=== PATIENT | male | born 1970 | race Caucasian/White ===

== ENCOUNTER → 2016-08-02 | Outpatient (REF) | LOC: M LAB 09:41 | PROVIDERS: ATTEND Nurse Practitioner Adult Health | DX: Z02.9 Encounter for administrative examinations, unspecified (principal) ==

== ENCOUNTER → 2016-10-18 | Outpatient (CLI) | payer OTHER ==
[2016-10-18 14:13] LABS: ALBUMIN 4.4 GM/DL (3.2-5.2); ALBUMIN/GLOBULIN RATIO 1.52 (1.00-1.93); ALKALINE PHOSPHATASE 57 U/L (45-117); ALT/SGPT 27 U/L (12-78); ANION GAP 7 MEQ/L (8-16); AST/SGOT 16 U/L (15-37); BILIRUBIN,TOTAL 0.3 MG/DL (0.2-1.0); BLOOD UREA NITROGEN 15 MG/DL (7-18); CALCIUM LEVEL 9.1 MG/DL (8.5-10.1); CARBON DIOXIDE LEVEL 27 MEQ/L (21-32); CHLORIDE LEVEL 106 MEQ/L (98-107); CHOLESTEROL LEVEL 218 MG/DL (<200); CREATININE FOR GFR 0.87 MG/DL (0.70-1.30); GLOMERULAR FILTRATION RATE > 60.0 (>60); GLUCOSE, FASTING 145 MG/DL (70-105); POTASSIUM SERUM 4.8 MEQ/L (3.5-5.1); SODIUM LEVEL 140 MEQ/L (136-145); TOTAL PROTEIN 7.3 GM/DL (6.4-8.2); TRIGLYCERIDES LEVEL 119 MG/DL (<150)
== END ==
LOC: M WUC 09:11
PROVIDERS: ATTEND Family Medicine Addiction Medicine
DX: I10 Essential (primary) hypertension (principal)

== ENCOUNTER → 2021-04-01 | Outpatient (REF) | LOC: M LABSMTC 10:27 | PROVIDERS: ATTEND Pediatrics | DX: Z20.822 Contact with and (suspected) exposure to COVID-19 (principal) ==

== ENCOUNTER → 2021-08-19 | Outpatient (CLI) | payer SELFPAY ==
[2021-08-19 17:54] LABS: BLOOD UREA NITROGEN 11 MG/DL (7-18); CALCIUM LEVEL 9.7 MG/DL (8.5-10.1); CARBON DIOXIDE LEVEL 31 MEQ/L (21-32); CHLORIDE LEVEL 106 MEQ/L (98-107); CREATININE FOR GFR 0.86 MG/DL (0.70-1.30); GLOMERULAR FILTRATION RATE > 60.0 (>60); GLUCOSE, FASTING 90 MG/DL (70-100); POTASSIUM SERUM 5.3 MEQ/L (3.5-5.1); SODIUM LEVEL 139 MEQ/L (136-145)
== END ==
LOC: M PLALAB 15:24
PROVIDERS: ATTEND Physician Assistant
DX: I10 Essential (primary) hypertension (principal)

== ENCOUNTER 2022-10-06 09:54 | Emergency (ER) | payer BC, SELFPAY ==
[~2022-10-06] VITALS: Ht 170.2 cm; Wt 90.7 kg
[2022-10-06] MEDS ORDERED: CETIRIZINE (ZyrTEC) 10 MG TAB PO ONE (12:40)
[2022-10-06] MEDS ORDERED: methylPREDNISolone 125MG 2ML VIAL IV ONE (12:40)
[2022-10-06 13:13] LABS: BASO # 0.1 10^3/uL (0.0-0.2); BASO % 0.4 % (0.0-1.0); EOS # 0.5 10^3/uL (0.0-0.5); EOS % 3.7 % (0.0-3.0); HEMATOCRIT 44.3 % (42.0-52.0); HEMOGLOBIN 14.7 g/dl (13.5-17.5); LYMPH # 2.2 10^3/uL (1.5-5.0); LYMPH % 15.3 % (24.0-44.0); MEAN CORPUSCULAR HEMOGLOBIN 31.3 pg (27.0-33.0); MEAN CORPUSCULAR HGB CONC 33.2 g/dl (32.0-36.5); MEAN CORPUSCULAR VOLUME 94.5 fl (80.0-96.0); MONO # 0.9 10^3/uL (0.0-0.8); MONO % 6.4 % (2.0-8.0); NEUTROPHILS # 10.3 10^3/uL (1.5-8.5); NEUTROPHILS % 73.9 % (36.0-66.0); PLATELET COUNT, AUTOMATED 265 10^3/uL (150-450); RED BLOOD COUNT 4.69 10^6/uL (4.30-6.10)
[2022-10-06 13:41] LABS: BLOOD UREA NITROGEN 9 MG/DL (9-23); CALCIUM LEVEL 9.3 MG/DL (8.5-10.1); CARBON DIOXIDE LEVEL 27 MMOL/L (20-31); CHLORIDE LEVEL 104 MMOL/L (98-107); GLOMERULAR FILTRATION RATE > 60.0 (>56); GLUCOSE, FASTING 116 MG/DL (60-100); POTASSIUM SERUM 4.9 MMOL/L (3.5-5.1); SODIUM LEVEL 137 MMOL/L (136-145)
[2022-10-06 14:11] LABS: ERYTHROCYTE SEDIMENTATION RATE 21 mm/hr (0-20)
[2022-10-06] MEDS ORDERED: ALL10TAB2 PO (14:39)
[2022-10-06] MEDS ORDERED: PRED20TA PO (14:39)
[2022-10-06] MEDS ORDERED: HYDR-3363 PO (14:39)
[2022-10-06 14:56] VITALS: BP 145/88
== END 2022-10-06 15:02 | disposition home or self-care (01) ==
LOC: M ED 09:54
DX: L20.9 Atopic dermatitis, unspecified (principal); I10 Essential (primary) hypertension; F17.200 Nicotine dependence, unspecified, uncomplicated; Z79.52 Long term (current) use of systemic steroids; Z79.811 Long term (current) use of aromatase inhibitors; Z79.899 Other long term (current) drug therapy
CPT/HCPCS: 80048; 85025; 85652; 86140; 93971; 96374; 99284; J2930

== ENCOUNTER 2022-11-03 18:56 | Inpatient (IN) | payer BC ==
[~2022-11-03] VITALS: Ht 170.2 cm; Wt 97.9 kg
[~2022-11-03 18:56] MED LIST: ALL10TAB2 PO; HYDR-3363 PO; PRED20TA PO
[2022-11-03 20:20] LABS: BASO % 0.2 % (0.0-1.0); EOS # 0.2 10^3/uL (0.0-0.5); EOS % 0.9 % (0.0-3.0); HEMATOCRIT 35.8 % (42.0-52.0); HEMOGLOBIN 11.7 g/dl (13.5-17.5); LYMPH # 1.2 10^3/uL (1.5-5.0); LYMPH % 7.1 % (24.0-44.0); MEAN CORPUSCULAR HEMOGLOBIN 30.7 pg (27.0-33.0); MEAN CORPUSCULAR HGB CONC 32.7 g/dl (32.0-36.5); MONO # 0.9 10^3/uL (0.0-0.8); MONO % 5.5 % (2.0-8.0); NEUTROPHILS # 14.7 10^3/uL (1.5-8.5); NEUTROPHILS % 85.7 % (36.0-66.0); PLATELET COUNT, AUTOMATED 293 10^3/uL (150-450); RED BLOOD COUNT 3.81 10^6/uL (4.30-6.10); WHITE BLOOD COUNT 17.2 10^3/uL (4.0-10.0)
[2022-11-03 20:41] LABS: ERYTHROCYTE SEDIMENTATION RATE 70 mm/hr (0-20)
[2022-11-03] MEDS ORDERED: CLINDAMYCIN 900 MG in IV 1 EA IV ONE (21:10)
[2022-11-03 22:00] LABS: RSV AMPLIFICATION NEGATIVE (NEGATIVE)
[2022-11-03] MEDS ORDERED: MOM 30ML SUSPENSION UDC PO PRN (23:45)
[2022-11-03] MEDS ORDERED: FLUID PLACE HOLDER IV SCH (23:45)
[2022-11-03] MEDS ORDERED: ACETAMINOPHEN TAB 650MG DOSE (2X325MG) PO PRN (23:45)
[2022-11-03] MEDS ORDERED: VANCOMYCIN HCL IV SCH (23:45)
[2022-11-03] MEDS ORDERED: MAALOX 30 ML SUSP *UDC PO PRN (23:45)
[2022-11-04] VITALS (7 sets, daily range): BP systolic 110–168; BP diastolic 57–90
[2022-11-04] MEDS ORDERED: ACET-897 PO (00:01)
[2022-11-04] MEDS ORDERED: HOME MED LIST COMPLETE! XX SCH (00:05)
[2022-11-04] MEDS: VANCOMYCIN HCL 1,000 MG, VIAL MATE ADAPTER 1 EACH in NS 250 ML IV SCH ×2 (01:17→09:30)
[2022-11-04] MEDS: PERCOCET 5MG/325MG TAB PO PRN ×4 (01:46→11:16)
[2022-11-04] MEDS ORDERED: VANCOMYCIN HCL 1,000 MG, VIAL MATE ADAPTER 1 EACH in NS 250 ML IV ONE (02:00)
[2022-11-04] MEDS: HEPARIN SOD (PORCINE) 5000UNITS/ML 1ML VIAL/SYRINGE SC SCH ×3 (05:05→21:50)
[2022-11-04 05:28] LABS: BASO % 0.2 % (0.0-1.0); EOS # 0.4 10^3/uL (0.0-0.5); EOS % 2.7 % (0.0-3.0); HEMATOCRIT 33.1 % (42.0-52.0); HEMOGLOBIN 10.8 g/dl (13.5-17.5); LYMPH # 1.4 10^3/uL (1.5-5.0); LYMPH % 8.5 % (24.0-44.0); MEAN CORPUSCULAR HEMOGLOBIN 30.9 pg (27.0-33.0); MEAN CORPUSCULAR HGB CONC 32.6 g/dl (32.0-36.5); MEAN CORPUSCULAR VOLUME 94.6 fl (80.0-96.0); MONO # 0.9 10^3/uL (0.0-0.8); MONO % 5.4 % (2.0-8.0); NEUTROPHILS # 13.3 10^3/uL (1.5-8.5); NEUTROPHILS % 82.6 % (36.0-66.0); PLATELET COUNT, AUTOMATED 266 10^3/uL (150-450); WHITE BLOOD COUNT 16.2 10^3/uL (4.0-10.0)
[2022-11-04 05:44] LABS: BLOOD UREA NITROGEN 12 MG/DL (9-23); CALCIUM LEVEL 7.3 MG/DL (8.5-10.1); CARBON DIOXIDE LEVEL 28 MMOL/L (20-31); CHLORIDE LEVEL 103 MMOL/L (98-107); CREATININE FOR GFR 0.86 MG/DL (0.70-1.30); GLOMERULAR FILTRATION RATE > 60.0 (>56); GLUCOSE, FASTING 116 MG/DL (60-100); POTASSIUM SERUM 4.2 MMOL/L (3.5-5.1); SODIUM LEVEL 137 MMOL/L (136-145)
[2022-11-04 08:14] LABS: ANTI-STREPTOLYSIN O QUANT < 25.0 IU/ML (<195)
[2022-11-04] MEDS ORDERED: LOSARTAN 25 MG TAB PO SCH (09:00)
[2022-11-04 10:06] LABS: CHOLESTEROL LEVEL 98 MG/DL (<200); CHOLESTEROL RISK RATIO 4.33 (<5); HDL CHOLESTEROL 22.6 MG/DL (>40); LDL CHOLESTEROL 53.6 MG/DL (<100); NON-HDL-C 75.4 MG/DL; TRIGLYCERIDES LEVEL 109 MG/DL (<150)
[2022-11-04 10:55] LABS: HEMOGLOBIN A1c 5.2 % (4.0-6.0)
[2022-11-04] MEDS: ROSUVASTATIN 10 MG TAB (CRESTOR) PO SCH (11:12)
[2022-11-04] MEDS: ASPIRIN 81MG ENTERIC TABLET PO SCH (11:12)
[2022-11-04 11:25] LABS: MAGNESIUM LEVEL 1.6 MG/DL (1.8-2.4)
[2022-11-04] MEDS: NS 1,000 ML IV SCH ×2 (11:38→22:56)
[2022-11-04] MEDS: VANCOMYCIN HCL 750 MG, VIAL MATE ADAPTER 1 EACH in D5W 250 ML IV SCH (17:54)
[2022-11-05] MEDS: VANCOMYCIN HCL 750 MG, VIAL MATE ADAPTER 1 EACH in D5W 250 ML IV SCH ×3 (01:11→18:14)
[2022-11-05] MEDS: PERCOCET 5MG/325MG TAB PO PRN ×3 (02:12→18:15)
[2022-11-05 03:54] VITALS: BP 113/62
[2022-11-05 04:24] LABS: BASO % 0.3 % (0.0-1.0); EOS # 0.4 10^3/uL (0.0-0.5); EOS % 3.9 % (0.0-3.0); HEMATOCRIT 28.3 % (42.0-52.0); HEMOGLOBIN 9.1 g/dl (13.5-17.5); LYMPH # 2.2 10^3/uL (1.5-5.0); LYMPH % 21.2 % (24.0-44.0); MEAN CORPUSCULAR HGB CONC 32.2 g/dl (32.0-36.5); MEAN CORPUSCULAR VOLUME 96.3 fl (80.0-96.0); MONO # 0.8 10^3/uL (0.0-0.8); MONO % 8.1 % (2.0-8.0); NEUTROPHILS # 6.7 10^3/uL (1.5-8.5); NEUTROPHILS % 65.9 % (36.0-66.0); PLATELET COUNT, AUTOMATED 258 10^3/uL (150-450); RED BLOOD COUNT 2.94 10^6/uL (4.30-6.10); WHITE BLOOD COUNT 10.2 10^3/uL (4.0-10.0)
[2022-11-05 04:53] LABS: C REACTIVE PROTEIN QUANTITATIV 17.6 MG/DL (<1.0)
[2022-11-05 04:56] LABS: CALCIUM LEVEL 7.4 MG/DL (8.5-10.1); CREATININE FOR GFR 1.41 MG/DL (0.70-1.30); GLOMERULAR FILTRATION RATE 56.4 (>56); POTASSIUM SERUM 4.2 MMOL/L (3.5-5.1)
[2022-11-05] MEDS: HEPARIN SOD (PORCINE) 5000UNITS/ML 1ML VIAL/SYRINGE SC SCH ×3 (05:10→22:09)
[2022-11-05 07:57] VITALS: BP 141/72
[2022-11-05] MEDS: ROSUVASTATIN 10 MG TAB (CRESTOR) PO SCH (08:30)
[2022-11-05] MEDS: ASPIRIN 81MG ENTERIC TABLET PO SCH (08:30)
[2022-11-05] MEDS: NS 1,000 ML IV SCH ×3 (08:33→23:54)
[2022-11-05 08:34] LABS: MAGNESIUM LEVEL 1.8 MG/DL (1.8-2.4)
[2022-11-05 11:54] VITALS: BP 142/79
[2022-11-05] MEDS: MORPHINE 2 MG/ML 1ML VIAL IV PRN ×2 (12:39→22:15)
[2022-11-05 16:51] VITALS: BP 144/75
[2022-11-05 20:00] VITALS: BP 127/62
[2022-11-06 00:15] VITALS: BP 130/69
[2022-11-06] MEDS: NS 1,000 ML IV SCH ×3 (02:19→20:11)
[2022-11-06] MEDS: VANCOMYCIN HCL 750 MG, VIAL MATE ADAPTER 1 EACH in D5W 250 ML IV SCH (02:19)
[2022-11-06 04:07] VITALS: BP 127/77
[2022-11-06 05:31] LABS: BASO % 0.3 % (0.0-1.0); EOS # 0.3 10^3/uL (0.0-0.5); EOS % 2.8 % (0.0-3.0); HEMATOCRIT 28.5 % (42.0-52.0); HEMOGLOBIN 9.1 g/dl (13.5-17.5); LYMPH # 2.3 10^3/uL (1.5-5.0); LYMPH % 25.9 % (24.0-44.0); MEAN CORPUSCULAR HEMOGLOBIN 30.6 pg (27.0-33.0); MEAN CORPUSCULAR HGB CONC 31.9 g/dl (32.0-36.5); MONO # 0.7 10^3/uL (0.0-0.8); MONO % 7.7 % (2.0-8.0); NEUTROPHILS # 5.5 10^3/uL (1.5-8.5); NEUTROPHILS % 62.5 % (36.0-66.0); PLATELET COUNT, AUTOMATED 275 10^3/uL (150-450); RED BLOOD COUNT 2.97 10^6/uL (4.30-6.10); WHITE BLOOD COUNT 8.8 10^3/uL (4.0-10.0)
[2022-11-06] MEDS: HEPARIN SOD (PORCINE) 5000UNITS/ML 1ML VIAL/SYRINGE SC SCH ×3 (05:32→21:45)
[2022-11-06 05:55] LABS: BLOOD UREA NITROGEN 17 MG/DL (9-23); CALCIUM LEVEL 7.5 MG/DL (8.5-10.1); CARBON DIOXIDE LEVEL 25 MMOL/L (20-31); CHLORIDE LEVEL 108 MMOL/L (98-107); CREATININE FOR GFR 0.95 MG/DL (0.70-1.30); GLOMERULAR FILTRATION RATE > 60.0 (>56); GLUCOSE, FASTING 100 MG/DL (60-100); MAGNESIUM LEVEL 1.9 MG/DL (1.8-2.4); POTASSIUM SERUM 4.7 MMOL/L (3.5-5.1); SODIUM LEVEL 137 MMOL/L (136-145)
[2022-11-06] MEDS: MORPHINE 2 MG/ML 1ML VIAL IV PRN ×3 (07:37→17:18)
[2022-11-06 08:00] VITALS: BP 147/78
[2022-11-06] MEDS: ROSUVASTATIN 10 MG TAB (CRESTOR) PO SCH (10:33)
[2022-11-06] MEDS: ASPIRIN 81MG ENTERIC TABLET PO SCH (10:33)
[2022-11-06] MEDS ORDERED: DOXYCYCLINE HYCLATE 100 MG in D5W MINI-BAG PLUS 100 ML IV SCH (10:40)
[2022-11-06 12:00] VITALS: BP 174/96
[2022-11-06] MEDS: DOXYCYCLINE HYCLATE 100MG TABLET PO SCH ×2 (12:33→21:44)
[2022-11-06] MEDS: NICOTINE 21MG/24HR 1 EA TRANSDERMAL TD PRN (14:39)
[2022-11-06] MEDS: PERCOCET 5MG/325MG TAB PO PRN ×2 (14:40→21:44)
[2022-11-06 16:00] VITALS: BP 158/78
[2022-11-06] MEDS ORDERED: MORPHINE 2 MG/ML 1ML VIAL IV ONE (19:35)
[2022-11-06 19:50] VITALS: BP 143/75
[2022-11-07] VITALS (9 sets, daily range): BP systolic 150–182; BP diastolic 74–99
[2022-11-07] MEDS ORDERED: amLODIPine 5 MG TAB PO ONE ×2 (02:00→13:25)
[2022-11-07] MEDS: PERCOCET 5MG/325MG TAB PO PRN ×3 (06:03→20:19)
[2022-11-07] MEDS: HEPARIN SOD (PORCINE) 5000UNITS/ML 1ML VIAL/SYRINGE SC SCH ×3 (06:03→22:03)
[2022-11-07 06:25] LABS: BASO % 0.3 % (0.0-1.0); EOS # 0.2 10^3/uL (0.0-0.5); EOS % 2.4 % (0.0-3.0); HEMATOCRIT 28.8 % (42.0-52.0); HEMOGLOBIN 9.2 g/dl (13.5-17.5); LYMPH # 2.5 10^3/uL (1.5-5.0); LYMPH % 26.1 % (24.0-44.0); MEAN CORPUSCULAR HEMOGLOBIN 30.6 pg (27.0-33.0); MEAN CORPUSCULAR HGB CONC 31.9 g/dl (32.0-36.5); MEAN CORPUSCULAR VOLUME 95.7 fl (80.0-96.0); MONO # 0.8 10^3/uL (0.0-0.8); MONO % 8.7 % (2.0-8.0); NEUTROPHILS # 5.9 10^3/uL (1.5-8.5); NEUTROPHILS % 61.7 % (36.0-66.0); PLATELET COUNT, AUTOMATED 292 10^3/uL (150-450); RED BLOOD COUNT 3.01 10^6/uL (4.30-6.10); WHITE BLOOD COUNT 9.5 10^3/uL (4.0-10.0)
[2022-11-07 06:47] LABS: BLOOD UREA NITROGEN 13 MG/DL (9-23); CARBON DIOXIDE LEVEL 25 MMOL/L (20-31); CHLORIDE LEVEL 107 MMOL/L (98-107); CREATININE FOR GFR 0.82 MG/DL (0.70-1.30); GLOMERULAR FILTRATION RATE > 60.0 (>56); GLUCOSE, FASTING 96 MG/DL (60-100); MAGNESIUM LEVEL 1.9 MG/DL (1.8-2.4); POTASSIUM SERUM 4.4 MMOL/L (3.5-5.1); SODIUM LEVEL 139 MMOL/L (136-145)
[2022-11-07] MEDS: ROSUVASTATIN 10 MG TAB (CRESTOR) PO SCH (08:14)
[2022-11-07] MEDS: DOXYCYCLINE HYCLATE 100MG TABLET PO SCH ×2 (08:15→20:18)
[2022-11-07] MEDS: NS 1,000 ML IV SCH ×2 (08:15→22:03)
[2022-11-07] MEDS: ASPIRIN 81MG ENTERIC TABLET PO SCH (08:15)
[2022-11-07] MEDS: MORPHINE 2 MG/ML 1ML VIAL IV PRN ×2 (08:32→16:23)
[2022-11-07] MEDS ORDERED: ISOVUE-370 76% 100ML VIAL As Ordered ONE (10:19)
[2022-11-07] MEDS: predniSONE 20 MG TAB PO SCH (13:45)
[2022-11-07] MEDS: NICOTINE 21MG/24HR 1 EA TRANSDERMAL TD PRN (16:23)
[2022-11-07] MEDS ORDERED: **hydrALAZINE HCL** 25 MG TAB PO PRN (17:00)
[2022-11-08 02:00] VITALS: BP 150/97
[2022-11-08] MEDS: HEPARIN SOD (PORCINE) 5000UNITS/ML 1ML VIAL/SYRINGE SC SCH ×3 (05:53→20:56)
[2022-11-08 06:00] VITALS: BP 153/89
[2022-11-08 06:23] LABS: BASO % 0.2 % (0.0-1.0); EOS % 0.1 % (0.0-3.0); HEMATOCRIT 30.3 % (42.0-52.0); HEMOGLOBIN 9.6 g/dl (13.5-17.5); LYMPH # 1.8 10^3/uL (1.5-5.0); LYMPH % 17.4 % (24.0-44.0); MEAN CORPUSCULAR HEMOGLOBIN 30.4 pg (27.0-33.0); MEAN CORPUSCULAR HGB CONC 31.7 g/dl (32.0-36.5); MEAN CORPUSCULAR VOLUME 95.9 fl (80.0-96.0); MONO # 0.8 10^3/uL (0.0-0.8); MONO % 7.6 % (2.0-8.0); NEUTROPHILS # 7.7 10^3/uL (1.5-8.5); NEUTROPHILS % 73.9 % (36.0-66.0); PLATELET COUNT, AUTOMATED 316 10^3/uL (150-450); RED BLOOD COUNT 3.16 10^6/uL (4.30-6.10); WHITE BLOOD COUNT 10.4 10^3/uL (4.0-10.0)
[2022-11-08 06:42] LABS: BLOOD UREA NITROGEN 14 MG/DL (9-23); CALCIUM LEVEL 8.4 MG/DL (8.5-10.1); CARBON DIOXIDE LEVEL 25 MMOL/L (20-31); CHLORIDE LEVEL 109 MMOL/L (98-107); GLOMERULAR FILTRATION RATE > 60.0 (>56); GLUCOSE, FASTING 124 MG/DL (60-100); MAGNESIUM LEVEL 1.9 MG/DL (1.8-2.4); POTASSIUM SERUM 4.6 MMOL/L (3.5-5.1); SODIUM LEVEL 139 MMOL/L (136-145)
[2022-11-08] MEDS ORDERED: amLODIPine 5 MG TAB PO SCH (09:00)
[2022-11-08] MEDS: ROSUVASTATIN 10 MG TAB (CRESTOR) PO SCH (09:42)
[2022-11-08] MEDS: ASPIRIN 81MG ENTERIC TABLET PO SCH (09:42)
[2022-11-08] MEDS: predniSONE 20 MG TAB PO SCH (09:42)
[2022-11-08] MEDS: DOXYCYCLINE HYCLATE 100MG TABLET PO SCH ×2 (09:42→20:55)
[2022-11-08 10:00] VITALS: BP 155/84
[2022-11-08] MEDS: PERCOCET 5MG/325MG TAB PO PRN ×3 (10:02→23:50)
[2022-11-08] MEDS: SPIRONOLACTONE 25 MG TAB PO SCH (11:27)
[2022-11-08] MEDS: SENOKOT S TAB PO SCH (11:27)
[2022-11-08] MEDS: NS 1,000 ML IV SCH ×2 (11:28→23:50)
[2022-11-08 14:00] VITALS: BP 171/96
[2022-11-08] MEDS: MORPHINE 2 MG/ML 1ML VIAL IV PRN ×2 (15:02→20:56)
[2022-11-08] MEDS: NICOTINE 21MG/24HR 1 EA TRANSDERMAL TD PRN (17:27)
[2022-11-08 18:00] VITALS: BP 162/93
[2022-11-08 20:28] VITALS: BP 162/93
[2022-11-08] MEDS ORDERED: **hydrALAZINE HCL** 25 MG TAB PO SCH (21:00)
[2022-11-09] MEDS: HEPARIN SOD (PORCINE) 5000UNITS/ML 1ML VIAL/SYRINGE SC SCH ×3 (06:01→20:32)
[2022-11-09 06:35] VITALS: BP 178/100
[2022-11-09 07:19] LABS: BASO % 0.4 % (0.0-1.0); EOS % 0.4 % (0.0-3.0); HEMATOCRIT 30.1 % (42.0-52.0); HEMOGLOBIN 9.3 g/dl (13.5-17.5); LYMPH # 2.9 10^3/uL (1.5-5.0); LYMPH % 25.7 % (24.0-44.0); MEAN CORPUSCULAR HEMOGLOBIN 30.7 pg (27.0-33.0); MEAN CORPUSCULAR HGB CONC 30.9 g/dl (32.0-36.5); MEAN CORPUSCULAR VOLUME 99.3 fl (80.0-96.0); MONO # 0.9 10^3/uL (0.0-0.8); MONO % 7.8 % (2.0-8.0); NEUTROPHILS # 7.2 10^3/uL (1.5-8.5); NEUTROPHILS % 64.8 % (36.0-66.0); PLATELET COUNT, AUTOMATED 307 10^3/uL (150-450); RED BLOOD COUNT 3.03 10^6/uL (4.30-6.10); WHITE BLOOD COUNT 11.1 10^3/uL (4.0-10.0)
[2022-11-09 08:08] VITALS: BP 186/100
[2022-11-09 08:46] LABS: ALKALINE PHOSPHATASE 139 U/L (46-116); ALT/SGPT 51 U/L (7.0-40); AST/SGOT 48 U/L (<34); BILIRUBIN,TOTAL 0.2 MG/DL (0.3-1.2); BLOOD UREA NITROGEN 19 MG/DL (9-23); CALCIUM LEVEL 8.5 MG/DL (8.5-10.1); CARBON DIOXIDE LEVEL 27 MMOL/L (20-31); CHLORIDE LEVEL 108 MMOL/L (98-107); CREATININE FOR GFR 0.88 MG/DL (0.70-1.30); GLOMERULAR FILTRATION RATE > 60.0 (>56); GLUCOSE, FASTING 100 MG/DL (60-100); MAGNESIUM LEVEL 1.8 MG/DL (1.8-2.4); POTASSIUM SERUM 4.5 MMOL/L (3.5-5.1); SODIUM LEVEL 140 MMOL/L (136-145)
[2022-11-09] MEDS: predniSONE 20 MG TAB PO SCH (09:38)
[2022-11-09] MEDS: ASPIRIN 81MG ENTERIC TABLET PO SCH (09:38)
[2022-11-09] MEDS: PERCOCET 5MG/325MG TAB PO PRN ×2 (09:38→16:02)
[2022-11-09] MEDS: DOXYCYCLINE HYCLATE 100MG TABLET PO SCH ×2 (09:39→20:31)
[2022-11-09] MEDS: **hydrALAZINE HCL** 25 MG TAB PO SCH ×3 (09:41→20:31)
[2022-11-09] MEDS: SPIRONOLACTONE 25 MG TAB PO SCH (09:41)
[2022-11-09] MEDS: SENOKOT S TAB PO SCH (09:42)
[2022-11-09] MEDS: ROSUVASTATIN 10 MG TAB (CRESTOR) PO SCH (09:42)
[2022-11-09 10:16] VITALS: BP 158/80
[2022-11-09] MEDS ORDERED: FUROSEMIDE 20MG/2ML VIAL IV ONE (11:10)
[2022-11-09] MEDS: NS 1,000 ML IV SCH (11:26)
[2022-11-09] MEDS: MORPHINE 2 MG/ML 1ML VIAL IV PRN ×2 (11:35→20:31)
[2022-11-09 14:00] VITALS: BP 151/92
[2022-11-09] MEDS ORDERED: MORPHINE 2 MG/ML 1ML VIAL IV ONE (14:30)
[2022-11-09] MEDS: NICOTINE 21MG/24HR 1 EA TRANSDERMAL TD PRN (16:02)
[2022-11-09 20:18] VITALS: BP 162/89
[2022-11-10] VITALS (9 sets, daily range): BP systolic 123–163; BP diastolic 63–107
[2022-11-10] MEDS: NS 1,000 ML IV SCH ×2 (03:52→21:29)
[2022-11-10 06:13] LABS: BASO % 0.2 % (0.0-1.0); EOS % 0.2 % (0.0-3.0); HEMATOCRIT 29.5 % (42.0-52.0); HEMOGLOBIN 9.6 g/dl (13.5-17.5); LYMPH % 24.5 % (24.0-44.0); MEAN CORPUSCULAR HEMOGLOBIN 30.6 pg (27.0-33.0); MEAN CORPUSCULAR HGB CONC 32.5 g/dl (32.0-36.5); MEAN CORPUSCULAR VOLUME 93.9 fl (80.0-96.0); MONO % 8.4 % (2.0-8.0); NEUTROPHILS % 65.7 % (36.0-66.0); PLATELET COUNT, AUTOMATED 346 10^3/uL (150-450); RED BLOOD COUNT 3.14 10^6/uL (4.30-6.10); WHITE BLOOD COUNT 12.1 10^3/uL (4.0-10.0)
[2022-11-10 06:24] LABS: INR 0.97; PROTHROMBIN TIME 13.1 SECONDS (12.5-14.5)
[2022-11-10 06:25] LABS: PARTIAL THROMBOPLASTIN TIME 29.2 SECONDS (24.8-34.2)
[2022-11-10 06:32] LABS: BLOOD UREA NITROGEN 21 MG/DL (9-23); CALCIUM LEVEL 8.2 MG/DL (8.5-10.1); CARBON DIOXIDE LEVEL 28 MMOL/L (20-31); CHLORIDE LEVEL 108 MMOL/L (98-107); CREATININE FOR GFR 0.86 MG/DL (0.70-1.30); GLOMERULAR FILTRATION RATE > 60.0 (>56); GLUCOSE, FASTING 87 MG/DL (60-100); MAGNESIUM LEVEL 1.8 MG/DL (1.8-2.4); POTASSIUM SERUM 4.4 MMOL/L (3.5-5.1); SODIUM LEVEL 141 MMOL/L (136-145)
[2022-11-10] MEDS: MORPHINE 2 MG/ML 1ML VIAL IV PRN ×3 (07:42→21:27)
[2022-11-10] MEDS ORDERED: LIDOCAINE 1% MDV 20ML VIAL As Ordered ONE (09:58)
[2022-11-10] MEDS ORDERED: MIDAZOLAM INJ 2MG/2ML VIAL As Ordered ONE (09:58)
[2022-11-10] MEDS ORDERED: ISOVUE-300 61% 100ML VIAL As Ordered ONE (09:58)
[2022-11-10] MEDS ORDERED: HEPARIN 1,000UNITS/ML 10ML VIAL (FOR RADIOLOGY & DIALYSIS ONLY) As Ordered ONE (09:58)
[2022-11-10] MEDS ORDERED: fentaNYL 100 MCG/2 ML INJECTION As Ordered ONE ×2 (09:58→11:22)
[2022-11-10] MEDS ORDERED: hydrALAZINE 20MG/ML 1ML VIAL As Ordered ONE (10:41)
[2022-11-10] MEDS ORDERED: LABETALOL 100MG/20ML VIAL As Ordered ONE (10:41)
[2022-11-10] MEDS: **hydrALAZINE HCL** 25 MG TAB PO SCH ×3 (13:00→21:28)
[2022-11-10] MEDS: DOXYCYCLINE HYCLATE 100MG TABLET PO SCH ×2 (13:14→21:28)
[2022-11-10] MEDS: predniSONE 20 MG TAB PO SCH (13:17)
[2022-11-10] MEDS: SENOKOT S TAB PO SCH (13:17)
[2022-11-10] MEDS: SPIRONOLACTONE 25 MG TAB PO SCH (13:18)
[2022-11-10] MEDS: ASPIRIN 81MG ENTERIC TABLET PO SCH (13:18)
[2022-11-10] MEDS: CLOPIDOGREL 75 MG TAB PO SCH (13:19)
[2022-11-10] MEDS: ROSUVASTATIN 10 MG TAB (CRESTOR) PO SCH (13:19)
[2022-11-10] MEDS: PANTOPRAZOLE 40MG VIAL IV SCH ×2 (14:49→21:26)
[2022-11-10] MEDS: PERCOCET 5MG/325MG TAB PO PRN (17:31)
[2022-11-11] VITALS: BP 140/70
[2022-11-11 04:00] VITALS: BP 146/73
[2022-11-11] MEDS: HEPARIN SOD (PORCINE) 5000UNITS/ML 1ML VIAL/SYRINGE SC SCH (06:06)
[2022-11-11 06:42] LABS: HEMATOCRIT 28.4 % (42.0-52.0); HEMOGLOBIN 9.3 g/dl (13.5-17.5); MEAN CORPUSCULAR HEMOGLOBIN 30.4 pg (27.0-33.0); MEAN CORPUSCULAR HGB CONC 32.7 g/dl (32.0-36.5); MEAN CORPUSCULAR VOLUME 92.8 fl (80.0-96.0); PLATELET COUNT, AUTOMATED 312 10^3/uL (150-450); RED BLOOD COUNT 3.06 10^6/uL (4.30-6.10); WHITE BLOOD COUNT 13.5 10^3/uL (4.0-10.0)
[2022-11-11 07:02] LABS: ALBUMIN 2.1 G/DL (3.2-5.2); ALKALINE PHOSPHATASE 116 U/L (46-116); ALT/SGPT 57 U/L (7.0-40); AST/SGOT 37 U/L (<34); BILIRUBIN,TOTAL 0.3 MG/DL (0.3-1.2); BLOOD UREA NITROGEN 18 MG/DL (9-23); CALCIUM LEVEL 8.4 MG/DL (8.5-10.1); CARBON DIOXIDE LEVEL 29 MMOL/L (20-31); CHLORIDE LEVEL 106 MMOL/L (98-107); CREATININE FOR GFR 0.81 MG/DL (0.70-1.30); GLOMERULAR FILTRATION RATE > 60.0 (>56); GLUCOSE, FASTING 91 MG/DL (60-100); MAGNESIUM LEVEL 1.8 MG/DL (1.8-2.4); SODIUM LEVEL 140 MMOL/L (136-145); TOTAL PROTEIN 5.7 G/DL (5.7-8.2)
[2022-11-11] MEDS: DOXYCYCLINE HYCLATE 100MG TABLET PO SCH (09:18)
[2022-11-11] MEDS: CLOPIDOGREL 75 MG TAB PO SCH (09:18)
[2022-11-11] MEDS: ASPIRIN 81MG ENTERIC TABLET PO SCH (09:20)
[2022-11-11] MEDS: PANTOPRAZOLE 40MG VIAL IV SCH (09:20)
[2022-11-11] MEDS: ROSUVASTATIN 10 MG TAB (CRESTOR) PO SCH (09:21)
[2022-11-11] MEDS: predniSONE 20 MG TAB PO SCH (09:22)
[2022-11-11] MEDS: PERCOCET 5MG/325MG TAB PO PRN (09:22)
[2022-11-11] MEDS: SENOKOT S TAB PO SCH (09:22)
[2022-11-11] MEDS: SPIRONOLACTONE 25 MG TAB PO SCH (09:23)
[2022-11-11] MEDS: **hydrALAZINE HCL** 25 MG TAB PO SCH (09:23)
[2022-11-11 09:24] VITALS: BP 180/90
[2022-11-11 10:23] VITALS: BP 164/86
[2022-11-11] MEDS ORDERED: CLOP75TA2 PO (10:35)
[2022-11-11] MEDS ORDERED: NICO21PAT TD (10:35)
[2022-11-11] MEDS ORDERED: AMLO1TAB25 PO (10:35)
[2022-11-11] MEDS ORDERED: ASPI81TAEC PO (10:35)
[2022-11-11] MEDS ORDERED: ROSU20TA5 PO (10:35)
[2022-11-11] MEDS ORDERED: ALDA25TA2 PO (10:35)
[2022-11-11] MEDS ORDERED: HYDR-3911 PO (10:36)
[2022-11-11 11:19] VITALS: BP 145/70
[2022-11-11] MEDS ORDERED: OXYC1TAB23 PO (12:58)
== END 2022-11-11 14:20 | disposition home health service (06) | DRG 710 ==
LOC: M ED 18:56 → M ED INP 23:36 → ENRESERV 11-04 00:13 → M PCU 11-04 00:53 → M MS5PR 11-07 19:20
PROVIDERS: ADMIT Family Medicine; ATTEND Internal Medicine
PROC: 047 Lower Arteries, Dilation (ICD-10-PCS; principal; 2022-11-10 11:00)
DX: A41.9 Sepsis, unspecified organism (principal); N17.9 Acute kidney failure, unspecified; L03.115 Cellulitis of right lower limb; E88.09 Other disorders of plasma-protein metabolism, not elsewhere classified; L03.116 Cellulitis of left lower limb; L97.919 Non-pressure chronic ulcer of unspecified part of right lower leg with unspecified severity; I10 Essential (primary) hypertension; I15.0 Renovascular hypertension; I70.1 Atherosclerosis of renal artery; K76.0 Fatty (change of) liver, not elsewhere classified; D64.9 Anemia, unspecified; I73.9 Peripheral vascular disease, unspecified; I77.1 Stricture of artery; I83.11 Varicose veins of right lower extremity with inflammation; I83.12 Varicose veins of left lower extremity with inflammation; F17.210 Nicotine dependence, cigarettes, uncomplicated; R21 Rash and other nonspecific skin eruption; Z79.899 Other long term (current) drug therapy

== ENCOUNTER → 2022-11-29 | Outpatient (CLI) | payer BC ==
[~2022-11-29] MED LIST changes: +ACET-897 PO; +ALDA25TA2 PO; +AMLO1TAB25 PO; +ASPI81TAEC PO; +CLOP75TA2 PO; +HYDR-3911 PO; +NICO21PAT TD; +OXYC1TAB23 PO; +ROSU20TA5 PO
[2022-11-29 12:07] LABS: BASO # 0.1 10^3/uL (0.0-0.2); BASO % 0.6 % (0.0-1.0); EOS # 0.4 10^3/uL (0.0-0.5); EOS % 4.1 % (0.0-3.0); HEMATOCRIT 37.1 % (42.0-52.0); HEMOGLOBIN 11.9 g/dl (13.5-17.5); LYMPH # 2.5 10^3/uL (1.5-5.0); LYMPH % 23.2 % (24.0-44.0); MEAN CORPUSCULAR HEMOGLOBIN 30.4 pg (27.0-33.0); MEAN CORPUSCULAR HGB CONC 32.1 g/dl (32.0-36.5); MEAN CORPUSCULAR VOLUME 94.9 fl (80.0-96.0); MONO # 0.9 10^3/uL (0.0-0.8); MONO % 8.3 % (2.0-8.0); NEUTROPHILS # 6.8 10^3/uL (1.5-8.5); NEUTROPHILS % 63.4 % (36.0-66.0); PLATELET COUNT, AUTOMATED 285 10^3/uL (150-450); RED BLOOD COUNT 3.91 10^6/uL (4.30-6.10); WHITE BLOOD COUNT 10.7 10^3/uL (4.0-10.0)
[2022-11-29 12:36] LABS: IRON (FE) 41 UG/DL (65-175)
[2022-11-29 12:37] LABS: ALBUMIN 3.9 G/DL (3.2-5.2); ALKALINE PHOSPHATASE 74 U/L (46-116); ALT/SGPT 19 U/L (7.0-40); AST/SGOT 21 U/L (<34); BILIRUBIN,TOTAL 0.4 MG/DL (0.3-1.2); BLOOD UREA NITROGEN 13 MG/DL (9-23); CALCIUM LEVEL 9.6 MG/DL (8.5-10.1); CARBON DIOXIDE LEVEL 31 MMOL/L (20-31); CHLORIDE LEVEL 99 MMOL/L (98-107); CHOLESTEROL LEVEL 134 MG/DL (<200); CHOLESTEROL RISK RATIO 2.82 (<5); CREATININE FOR GFR 0.95 MG/DL (0.70-1.30); GLOMERULAR FILTRATION RATE > 60.0 (>56); GLUCOSE, FASTING 106 MG/DL (60-100); HDL CHOLESTEROL 47.5 MG/DL (>40); LDL CHOLESTEROL 65.3 MG/DL (<100); NON-HDL-C 86.5 MG/DL; PERCENT SATURATION 13.6 % (19.7-50.0); POTASSIUM SERUM 4.7 MMOL/L (3.5-5.1); SODIUM LEVEL 135 MMOL/L (136-145); TOTAL IRON BINDING CAPACITY 302 UG/DL (250-425); TOTAL PROTEIN 7.4 G/DL (5.7-8.2); TRIGLYCERIDES LEVEL 106 MG/DL (<150)
[2022-11-29 12:41] LABS: FERRITIN 259.7 NG/ML (10.5-307.3); THYROID STIMULATING HORMONE 1.337 uIU/ML (0.55-4.78); TOTAL 25(OH) VITAMIN D 10.2 NG/ML (20.0-100.0)
== END ==
LOC: M LAB 11:04
PROVIDERS: ATTEND Physician Assistant
DX: I11.9 Hypertensive heart disease without heart failure (principal)

== ENCOUNTER → 2023-01-19 | Outpatient (CLI) | payer BC ==
[~2023-01-19] MED LIST changes: +ERGO500029 PO; +HYDR-3490 PO; +LISI40TA4 PO; -ROSU20TA5 PO; +ROSU20TA61 PO
== END ==
LOC: M RAD 07:11
PROVIDERS: ATTEND Surgery Vascular Surgery
DX: I73.9 Peripheral vascular disease, unspecified (principal)

== ENCOUNTER → 2023-02-14 | Outpatient (CLI) | payer BC | LOC: M RAD 10:00 | PROVIDERS: ATTEND Physician Assistant | DX: R59.0 Localized enlarged lymph nodes (principal); F17.210 Nicotine dependence, cigarettes, uncomplicated; R91.8 Other nonspecific abnormal finding of lung field ==

== ENCOUNTER → 2023-02-26 | Outpatient (CLI) | payer BC ==
[~2023-02-26] MED LIST changes: +ISOVUE-370 76% 100ML VIAL As Ordered ONE
== END ==
LOC: M RAD 07:41
PROVIDERS: ATTEND Specialist
DX: D50.9 Iron deficiency anemia, unspecified (principal); R59.1 Generalized enlarged lymph nodes
CPT/HCPCS: 70491; 71260; 76857; Q9967

== ENCOUNTER → 2023-07-26 | Outpatient (REF) ==
[~2023-07-26] MED LIST changes: -ISOVUE-370 76% 100ML VIAL As Ordered ONE
== END ==
LOC: M EMP 11:47
PROVIDERS: ATTEND Family Medicine
DX: Z20.822 Contact with and (suspected) exposure to COVID-19 (principal)